=== PATIENT | female | born 1945 | race Caucasian/White ===

== ENCOUNTER 2017-05-04 07:41 | Day surgery (SDC) | payer OTHER, MEDICARE ==
[2017-04-22 14:06] VITALS: BMI 20.8
[2017-05-04] MEDS: CYCLOPENTOLATE 2% OPHTH SOLN 2 ML BOTTLE ONE ×3 (08:20→08:30)
[2017-05-04] MEDS: TROPICAMIDE 1% OPHTH SOLN 15 ML BOTTLE ONE ×3 (08:20→08:30)
[2017-05-04] MEDS: CIPROFLOXACIN 0.3% EYE DROPS 5 ML BOTTLE ONE ×3 (08:20→08:30)
[2017-05-04] MEDS: PHENYLEPHRINE 2.5% OPHTH SOLN 15 ML BOTTLE ONE ×3 (08:20→08:30)
[2017-05-04] MEDS ORDERED: MIDAZOLAM HCL 2 MG/2 ML SINGLE DOSE VIAL ONE (09:23)
[2017-05-04 10:32] VITALS: BP 131/78; PULSE 72; TEMP 98.1
--- NOTE | 2017-05-04 11:51 | OP ---
DATE OF OPERATION: 05/04/2017 OPERATIVE PROCEDURE: Lens Phacoemulsification with Posterior Chamber Intraocular Lens Placement Left Eye PREOPERATIVE DIAGNOSIS: Visually Significant Cataract of Left Eye POSTOPERATIVE DIAGNOSIS: Visually Significant Cataract of Left Eye SURGEON: Alex Haddad M.D. ANESTHESIA: MAC ANESTHESIOLOGIST: PROCEDURE: The patient was brought to the operating room and placed under monitored anesthesia care by Anesthesia. A drop of Tetracaine was then placed over the left eye. The patient was then prepped and draped in the usual sterile manner. A speculum was then placed over the left eye. The eye was then well irrigated with copious amounts of BSS (balanced salt solution). The operating microscope was then moved into position. A paracentesis was performed using a 15 degree blade. At this point 0.5 mL of 1% preservative-free lidocaine was injected into the anterior chamber. Amvisc plus was then injected into the anterior chamber. A clear corneal incision was then formed using a 2.2 mm keratome. A capsulorrhexis was then performed in a continuous circular fashion beginning with a cystotome, completed with an Utratas forceps. Hydrodissection was then performed using BSS on a cannula. The phaco probe was then introduced through the corneal wound and the cataract was removed using the phaco chop technique. Approximately 3 seconds of absolute phaco time was used. The remaining cortex was then removed using irrigation and aspiration with an I/A probe. The capsule was then filled with regular Amvisc and the capsule was noted to be intact. A previously selected foldable posterior chamber intraocular lens was then injected into the capsule through the corneal wound using a lens injector. It was then dialed into position using a Sinskey hook. The Amvisc was then removed using irrigation and aspiration. Miostat was then injected through the paracentesis to constrict the pupil. The paracentesis and corneal wound were then hydrated and noted to be water tight. A drop of Maxitrol was then placed over the eye. The speculum was removed and clear shield was taped over the eye. The patient tolerated the procedure well and there were no surgical complications. The patient was asked to follow up in my office the next day. ALEX HADDAD M.D. [id number]
== END 2017-05-04 10:37 | disposition home or self-care (01) ==
LOC: FASU 07:41
PROVIDERS: ATTEND Ophthalmology
PROC: 08RK3JZ Replacement of Left Lens with Synthetic Substitute, Percutaneous Approach (ICD-10-PCS; principal; 2017-05-04 09:28)
DX: H26.8 Other specified cataract (principal)

== ENCOUNTER 2017-06-20 07:40 | Day surgery (SDC) | payer OTHER, MEDICARE ==
[2017-06-06 13:43] VITALS: BMI 20.8
[2017-06-20] MEDS: PHENYLEPHRINE 2.5% OPHTH SOLN 15 ML BOTTLE ONE ×3 (08:20→08:30)
[2017-06-20] MEDS: CIPROFLOXACIN 0.3% EYE DROPS 5 ML BOTTLE ONE ×3 (08:20→08:30)
[2017-06-20] MEDS: TROPICAMIDE 1% OPHTH SOLN 15 ML BOTTLE ONE ×3 (08:20→08:30)
[2017-06-20] MEDS: CYCLOPENTOLATE 2% OPHTH SOLN 2 ML BOTTLE ONE ×3 (08:20→08:30)
[2017-06-20] MEDS ORDERED: MIDAZOLAM HCL 2 MG/2 ML SINGLE DOSE VIAL ONE (09:42)
[2017-06-20 10:57] VITALS: TEMP 98
[2017-06-20 11:04] VITALS: BP 151/72; PULSE 70
--- NOTE | 2017-06-20 18:55 | OP ---
DATE OF OPERATION: 06/20/2017 OPERATIVE PROCEDURE: Lens Phacoemulsification with Posterior Chamber Intraocular Lens Placement, Right Eye PREOPERATIVE DIAGNOSIS: Visually Significant Cataract of Right Eye POSTOPERATIVE DIAGNOSIS: Visually Significant Cataract of Right Eye SURGEON: Alex Haddad M.D. ANESTHESIA: MAC PROCEDURE: The patient was brought to the operating room and placed under monitored anesthesia care by Anesthesia. A drop of Tetracaine was then placed over the right eye. The patient was then prepped and draped in the usual sterile manner. A speculum was then placed over the right eye. The eye was then well irrigated with copious amounts of BSS (balanced salt solution). The operating microscope was then moved into position. A paracentesis was performed using a 15 degree blade. At this point 0.5 mL of 1% preservative free-lidocaine was injected into the anterior chamber. Amvisc plus was then injected into the anterior chamber. A clear corneal incision was then formed using a 2.2 mm keratome. A capsulorrhexis was then performed in a continuous circular fashion beginning with a cystotome completed with an Utratas forceps. Hydrodissection was then performed using BSS on a cannula. The phaco probe was then introduced through the corneal wound and the cataract was removed using the phaco chop technique. Approximately 3 seconds of absolute phaco time was used. The remaining cortex was then removed using irrigation and aspiration with an I/A probe. The capsule was then filled with regular Amvisc and the capsule was noted to be intact. A previously selected foldable posterior chamber intraocular lens was then injected into the capsule through the corneal wound using a lens injector. It was then dialed into position using a Sinskey hook. The Amvisc was then removed using irrigation and aspiration. Miostat was then injected through the paracentesis to constrict the pupil. The paracentesis and corneal wound were then hydrated and noted to be water tight. A drop of Maxitrol was then placed over the eye. The speculum was removed and clear shield was taped over the eye. The patient tolerated the procedure well and there were no surgical complications. The patient was asked to follow up in my office the next day. ALEX HADDAD M.D. [id number]
== END 2017-06-20 10:30 | disposition home or self-care (01) ==
LOC: FASU 07:40
PROVIDERS: ATTEND Ophthalmology
PROC: 08RJ3JZ Replacement of Right Lens with Synthetic Substitute, Percutaneous Approach (ICD-10-PCS; principal; 2017-06-20 09:48)
DX: H26.8 Other specified cataract (principal)

== ENCOUNTER 2018-03-06 13:46 | Emergency (ER) | payer OTHER, MEDICARE ==
[2018-03-06 14:11] VITALS: TEMP 99; BMI 20.8
--- NOTE | 2018-03-06 15:17 | PDOC ---
History of Present Illness - General Chief Complaint: Chest Pain Stated Complaint: CHEST PAIN History Source: Patient Exam Limitations: No Limitations - History of Present Illness Initial Comments: 03/06/18 16:00 73 yo F with a hx of HTN and HLD presents to the emergency department with chest pain with concurrent headache. Per the patient, the event occurred at 12: 30 pm while sitting in the car. She states it was across her chest, felt sharp, lasted 1 minute, did not radiate, and terminated on its own. She had a similar episode yesterday in the late afternoon that lasted 30 seconds while sitting. During todays episode, she endorses the following symptoms: lightheadedness, headaches, palpitations, SOB, and weakness. Currently, she denies chest pain and only has a residual headache on the right side. She was able to exercise at the gym without difficulties earlier this morning. Incidentally, they found her SBP to be in 190s at the office (normal is in the 160s). She recently had a resection of melanoma 3.5 months ago with no chemo needed. Denies the following : FND, visual changes, nausea, vomiting, abdominal pain, dysuria, hematuria, melena, hematochezia, diarrhea, and leg pain/swelling. Denies recent plane travels, immobilization, surgeries, hx of PE/DVT, and use of hormones. Pmhx: Refer to above Shx: None Meds: None Allergies: IV Contrast Social: Denies tobacco, alcohol, and substance abuse. 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, 3) Cardiac Disorders: No CVA: No COPD: No CHF: No Dementia: No Diabetes: No GI Disorders: No Disorders: No HTN: No Hypercholesterolemia: No Liver Disease: No Seizures: No Thyroid Disease: No - Surgical History Abdominal Surgery: No Appendectomy: Yes Cardiac Surgery: No Cholecystectomy: No Lung Surgery: No Neurologic Surgery: No Orthopedic Surgery: Yes (ROTATOR CUFF RIGHT SHOULDER DEC 2015) - Immunization History Immunization Up to Date: No - Suicide/Smoking/Psychosocial Hx Smoking Status: No Smoking History: Never smoked Have you smoked in the past 12 months: No Number of Cigarettes Smoked Daily: 20 If you are a former smoker, when did you quit?: 1973 Cigars Per Day: 20 Information on smoking cessation initiated: No 'Breaking Loose' booklet given: 10/02/11 Hx Alcohol Use: No Drug/Substance Use Hx: No Substance Use Type: None Hx Substance Use Treatment: No Review of Systems - Review of Systems Able to Perform ROS?: Yes Comments:: Refer to HPI Is the patient limited Romansh proficient: No *Physical Exam - Vital Signs Last Vital Signs Temp Pulse Resp BP Pulse Ox 99.0 F 74 18 166/78 100 03/06/18 14:03 03/06/18 14:03 03/06/18 14:03 03/06/18 14:03 03/06/18 14:12 - Physical Exam General Appearance: Yes: Nourished, Appropriately Dressed. No: Apparent Distress, Disheveled, Alcohol on Breath, Intoxicated HEENT: positive: EOMI, SOLE, Normal Voice, Symmetrical, Hearing Grossly Normal. negative: Pale Conjunctivae, Scleral Icterus (R), Scleral Icterus (L), Muffled /Hoarse voice, Pharyngeal Erythema, Tonsillar Exudate, Tonsillar Erythema, Sinus Tenderness, Excessive drooling Neck: positive: Trachea midline. negative: Tender, Lymphadenopathy (R), Lymphadenopathy (L), Tender lateral, Tender midline Respiratory/Chest: positive: Lungs Clear, Normal Breath Sounds. negative: Chest Tender, Respiratory Distress, Accessory Muscle Use, Crackles, Rales, Rhonchi, Stridor, Wheezing Cardiovascular: positive: Regular Rhythm, Regular Rate, S1, S2. negative: Systolic Murmur Gastrointestinal/Abdominal: positive: Normal Bowel Sounds, Flat, Soft. negative : Tender, Organomegaly, Pulsatile Mass, Protuberent, Distended Lymphatic: negative: Adenopathy Musculoskeletal: positive: Normal Inspection. negative: CVA Tenderness, Decreased Range of Motion, Vertebral Tenderness Extremity: positive: Normal Capillary Refill, Normal Inspection, Normal Range of Motion. negative: Tender, Swelling, Calf Tenderness, Erythema Integumentary: positive: Normal Color, Dry, Warm. negative: Diaphoresis, Petechiae, Rash, Ecchymosis, Bruising Neurologic: positive: hackler doll wigs II-XII NML intact, Fully Oriented, Alert, Normal Mood/ Affect, Normal Response, Motor Strength 5/5, Facial Droop. negative: EOM Palsy , Sensory Deficit Heart Score/ECG Review - History History: Slightly suspicious - Electrocardiogram EKG: Normal - Age Age: >/= 65 - Risk Factors Risk Factors Heart Score: Yes Hx Hypercholesterolemia, Yes Hx Hypertension Based on the list above the patient has:: 1-2 risk factors - Troponin Troponin: </= normal limit - Score Heart Score - Total: 3 - ECG Intrepretation Comment:: ventricular rate is 73 bpm, [place] is 166 ms, QRS duration is 84 ms, QTc is 449 ms. Inversion t wave in III. no st elevations or depressions noted. ED Treatment Course - LABORATORY CBC & Chemistry Diagram: 03/06/18 16:02 03/06/18 16:02 Medical Decision Making - Medical Decision Making 73 yo F with a hx of HTN and HLD presents to the emergency department with chest pain with concurrent headache Initial vitals: Initial Vital Signs Temp Pulse Resp BP Pulse Ox 99.0 F 74 18 166/78 99 03/06/18 14:03 03/06/18 14:03 03/06/18 14:03 03/06/18 14:03 03/06/18 14:03 Presents with chest pain that is aytpical in nature with an associative headache. the following will be ordered to rule out acs (Cardiac work up), PNA, intracranial pathologies (ICH, SAH): cbc, cmp, trops, ua, head ct, cxr. patient is at a HEART score of 3 prior to troponin read. Laboratory Tests 03/06/18 03/06/18 03/06/18 16:02 16:02 16:02 WBC 10.1 H RBC 4.01 Hgb 12.6 Hct 36.5 MCV 91.1 MCH 31.5 D MCHC 34.6 RDW 13.2 Plt Count 280 MPV 8.0 Absolute Neuts (auto) 6.3 Neutrophils % 62.5 Lymphocytes % 27.3 D Monocytes % 7.1 Eosinophils % 1.7 Basophils % 1.4 Nucleated RBC % 0 Sodium 142 Potassium 3.6 Chloride 108 H Carbon Dioxide 26 Anion Gap 8 BUN 15 Creatinine 0.6 Creat Clearance w eGFR > 60 Random Glucose 76 Calcium 8.5 Total Bilirubin 0.2 AST 18 ALT 19 Alkaline Phosphatase 74 Creatine Kinase 62 Troponin I < 0.02 Total Protein 6.2 L Albumin 3.5 Urine Color Ltyellow Urine Appearance Clear Urine pH 6.0 Ur Specific [place] 1.014 Urine Protein Negative Urine Glucose (UA) Negative Urine Ketones Negative Urine Blood Negative Urine Nitrite Negative Urine Bilirubin Negative Urine Urobilinogen Negative Ur Leukocyte Esterase Trace Urine WBC (Auto) 1 Urine RBC (Auto) 1 Ur Epithelial Cells Rare Urine Mucus Rare Troponins were negative. she states she has remained asymptomatic in the department chest pain wade. initially 1 gram of tylenol IV was given for headache pain. this was ineffective per the patient. reglan and toradol were ordered and the patient had remarkable improvement. CT head was negative for acute pathologies but noted a chronic right punctate basal ganglia infarct that was seen on a previous exam in 2015. cxr did not show acute pathologies (no pna , widening mediastinum, enlarged heart). During her stay, her BP improved (SBP was in the low 160s during time of initial assessment). The results were discussed with the patient and all questions were answered to her satisfaction. She states that she will follow up with cardiology within 48 hours for repeat BP check and further cardiac work up. Vitals were stable at discharge and the patient was asymptomatic. bp was 128/61 Dispo: Discharge *DC/Admit/Observation/Transfer Diagnosis at time of Disposition: Chest pain Qualifiers: Chest pain type: unspecified Qualified Code(s): R07.9 - Chest pain, unspecified - Discharge Dispostion Disposition: HOME Decision to Admit order: No - Referrals Referrals: Issa Jara MD [Primary Care Provider] - Joaquim Cline MD [Staff Physician] - Sumit Mohr MD [Staff Physician] - - Patient Instructions Printed Discharge Instructions: DI for Atypical Chest Pain Additional Instructions: You were seen in the emergency department for your chest pain. Your labs indicate that you did not have a myocardial infarction (heart attack). You did present to the emergency department with elevated blood pressure and we advise you have this rechecked with your PMD within 48 hours. Please follow up with Dr. Jara or Dr. Cline within 48 hours for follow up care and management. Please return to the emergency department if you have worsening chest pain or new concerning symptoms such as fevers, chills, sweating with chest pain, and shortness of breath or chest pain with exertion. We also referred you to a neurologist that can be followed up with within 3 days. Thank you. - Post Discharge Activity
[2018-03-06] MEDS ORDERED: ACETAMINOPHEN 1000 MG/100 ML VIAL (NON FORMULARY) IVPB ONE (15:59)
[2018-03-06] MEDS ORDERED: ACETAMINOPHEN INJECTION 100 ML IVPB ONE (16:12)
[2018-03-06 16:20] LABS: BASO % 1.4 % (0-2.0); EOS % 1.7 % (0-4.5); HEMATOCRIT 36.5 % (32.4-45.2); HEMOGLOBIN 12.6 GM/dL (10.7-15.3); LYMPH % 27.3 % (8-40); MCH 31.5 pg (25.7-33.7); MCHC 34.6 g/dl (32.0-36.0); MEAN CELL VOLUME 91.1 fl (80-96); MONO % 7.1 % (3.8-10.2); NEUT % 62.5 % (42.8-82.8); PLATELET COUNT 280 K/MM3 (134-434); RBC 4.01 M/mm3 (3.60-5.2); RDW 13.2 % (11.6-15.6); WHITE BLOOD COUNT 10.1 K/mm3 (4.0-10.0)
[2018-03-06 16:26] LABS: URINE APPEARANCE CLEAR; URINE BILIRUBIN NEGATIVE (<2.0 mg/dL); URINE COLOR LTYELLOW; URINE GLUCOSE (UA) NEGATIVE (NEGATIVE); URINE KETONE NEGATIVE (NEGATIVE); URINE LEUK ESTERASE TRACE (NEGATIVE); URINE NITRITE NEGATIVE (NEGATIVE); URINE PROTEIN NEGATIVE (NEGATIVE); URINE UROBILINOGEN NEGATIVE mg/dL (0.2-1.0)
[2018-03-06 16:38] VITALS: BP 174/87; PULSE 70
[2018-03-06 16:54] LABS: ALBUMIN 3.5 g/dl (3.4-5.0); ALK PHOS 74 U/L (45-117); ANION GAP 8 MMOL/L (8-16); BILIRUBIN,TOTAL 0.2 mg/dL (0.2-1); BLOOD UREA NITROGEN 15 mg/dL (7-18); CALCIUM 8.5 mg/dL (8.5-10.1); CHLORIDE 108 mmol/L (98-107); CO2 26 mmol/L (21-32); CREATININE 0.6 mg/dL (0.55-1.3); GLUCOSE,RANDOM 76 mg/dL (74-106); POTASSIUM 3.6 mmol/L (3.5-5.1); SGOT/AST 18 U/L (15-37); SGPT/ALT 19 U/L (13-61); SODIUM 142 mmol/L (136-145); TOT PROT 6.2 g/dl (6.4-8.2)
[2018-03-06 16:57] LABS: EPI CELLS RARE /HPF (FEW); URINE MUCUS RARE
[2018-03-06] MEDS ORDERED: METOCLOPRAMIDE HCL INJECTION 10 MG/2 ML VIAL IVPUSH ONE (17:06)
[2018-03-06] MEDS ORDERED: KETOROLAC TROMETHAMINE 15 MG/ML VIAL IVPUSH ONE (17:06)
[2018-03-06] MEDS ORDERED: METOCLOPRAMIDE HCL INJECTION 10 MG/2 ML VIAL ONE (17:10)
[2018-03-06] MEDS ORDERED: KETOROLAC TROMETHAMINE 15 MG/ML VIAL ONE (17:10)
--- NOTE | 2018-03-06 17:14 | PDOC ---
Attending Attestation - Resident Resident Name: Juan J Guzman - ED Attending Attestation I have performed the following: I have examined & evaluated the patient, The case was reviewed & discussed with the resident, I agree w/resident's findings & plan, Exceptions are as noted - HPI HPI: 03/06/18 17:09 The patient is a 73 year old female, with a past medical history of HTN and HLD , who presents to the emergency department with chest pain and headache. Pt reports intermittent sharp midsternal chest pain since yesterday. She describes the chest pain as lasting 1 minute, sharp, and resolving spontaneously. Pt also endorses mild intermittent headaches x 6 days. Denies N/V. Denies neck pain. Denies F/C. Pt was seen at [facility] prior to coming to ED, where she was found to have BP 190/100. Pt does not currently take any BP meds. She denies recent fevers, chills, headache or dizziness. She denies recent nausea, vomit, diarrhea or constipation. She denies recent dysuria, frequency, urgency or hematuria. She denies recent shortness of breath. Allergies: Oral and IV contrast. Primary Care Physician: Dr. Jara - Physicial Exam PE: 03/06/18 17:13 GENERAL: Awake, alert, and fully oriented, in no acute distress. HEAD: No signs of trauma EYES: PERRLA, EOMI, sclera anicteric, conjunctiva clear ENT: Auricles normal inspection, hearing grossly normal, nares patent, oropharynx clear without exudates. Moist mucosa NECK: Nontender, no stepoffs, Normal ROM, supple, no lymphadenopathy, JVD, or masses LUNGS: Breath sounds equal, clear to auscultation bilaterally. No wheezes, and no crackles HEART: Regular rate and rhythm, normal S1 and S2, no murmurs, rubs or gallops ABDOMEN: Soft, nontender, normoactive bowel sounds. No guarding, no rebound. No masses EXTREMITIES: Normal range of motion, no edema. No clubbing or cyanosis. No cords, erythema, or tenderness NEUROLOGICAL: Cranial nerves II through XII intact. 5/5 strength and sensation in all extremities, Normal speech, normal gait, normal cerebellar function SKIN: Warm, Dry, normal turgor, no rashes or lesions noted. - Medical Decision Making 03/06/18 17:13 73 F with intermittent chest pain and headaches. Pt with normal EKG. Chest pain is very atypical in nature. HEART score is 3 with negative troponin. Will r/o ICH given elevated BP and [place] today. However, pt is well appearing with no neuro deficits. - Labs, trop - CT head 03/06/18 18:00 Labs wnl, trop negative Pt has had symptoms >4 hours, so single trop sufficient for ACS rule out. CT head negative Pt reassessed - now feels well, denies any pain. BP is improving without intervention. Pt instructed to f/u with cardiology within 48 hours for further evaluation of her chest pain and management of her BP. Pt is well appearing, with normal vitals. Clinically stable for DC at this time. I discussed the physical exam findings, ancillary test results and final diagnoses with the patient. I answered all of the patient's questions. The patient was satisfied with the care received and felt comfortable with the discharge plan and treatment plan. The patient agrees to follow up with the primary care physician within 24-72 hours.
--- NOTE | 2018-03-07 12:36 | EKG ---
Test Reason : Blood Pressure : / mmHG Vent. Rate : 073 BPM Atrial Rate : 073 BPM P-R Int : 166 ms QRS Dur : 084 ms QT Int : 408 ms P-R-T Axes : 056 017 019 degrees QTc Int : 449 ms NORMAL SINUS RHYTHM WITH SINUS ARRHYTHMIA LOW VOLTAGE QRS SEPTAL INFARCT , AGE UNDETERMINED ABNORMAL ECG Confirmed by MD SELIN, LINDSAY ([id number]) on 03/07/2018 12:35:40 PM Referred By: Confirmed By:LINDSAY SMALLWOOD MD
== END 2018-03-06 18:22 | disposition home or self-care (01) ==
LOC: JER 13:46
PROC: 3E033GC Introduction of Other Therapeutic Substance into Peripheral Vein, Percutaneous Approach (ICD-10-PCS; principal; 2018-03-06)
PROC: 3E033NZ Introduction of Analgesics, Hypnotics, Sedatives into Peripheral Vein, Percutaneous Approach (ICD-10-PCS; 2018-03-06)
PROC: 3E0333Z Introduction of Anti-inflammatory into Peripheral Vein, Percutaneous Approach (ICD-10-PCS; 2018-03-06)
DX: R07.9 Chest pain, unspecified (principal); I10 Essential (primary) hypertension; E78.5 Hyperlipidemia, unspecified
CPT/HCPCS: 36415; 70450-TC; 71045-TC-FY; 80053; 81003; 81015; 82550; 84484; 85025; 87086; 93005; 93010; 96374; 96375; 99285-25; J0131

== ENCOUNTER 2018-12-26 23:50 | Emergency (ER) | payer OTHER, MEDICARE ==
[2018-12-27] VITALS: BP 153/84; PULSE 85; TEMP 99.3; BMI 20.9
[2018-12-27] MEDS ORDERED: METOCLOPRAMIDE HCL INJECTION 10 MG/2 ML VIAL IVPUSH ONE (00:11)
[2018-12-27] MEDS ORDERED: ACETAMINOPHEN 1000 MG/100 ML VIAL (NON FORMULARY) IVPB ONE (00:11)
[2018-12-27] MEDS ORDERED: SODIUM CHLORIDE 0.9% 1000 ML INFUS.BAG IV ONE (00:11)
[2018-12-27] MEDS ORDERED: ALBUTEROL SO4 2.5/IPRATROPIUM 0.5 INH SOL 3 ML VIAL.NEB. NEB ONE ×2 (00:12→00:23)
[2018-12-27] MEDS ORDERED: METOCLOPRAMIDE HCL INJECTION 10 MG/2 ML VIAL ONE ×2 (00:23→00:42)
[2018-12-27] MEDS ORDERED: ACETAMINOPHEN INJECTION 100 ML IVPB ONE (00:23)
[2018-12-27 01:18] LABS: BASO % 0.7 % (0-2.0); EOS % 0.9 % (0-4.5); HEMOGLOBIN 12.3 GM/dL (10.7-15.3); LYMPH % 11.8 % (8-40); MCH 30.8 pg (25.7-33.7); MCHC 32.3 g/dl (32.0-36.0); MEAN CELL VOLUME 95.3 fl (80-96); MEAN PLT VOLUME 10.6 fl (7.5-11.1); MONO % 7.7 % (3.8-10.2); NEUT % 78.9 % (42.8-82.8); PLATELET COUNT 148 K/MM3 (134-434); RBC 3.99 M/mm3 (3.60-5.2); WHITE BLOOD COUNT 11.6 K/mm3 (4.0-10.0)
[2018-12-27 01:26] LABS: URINE APPEARANCE CLEAR; URINE BILIRUBIN NEGATIVE (NEGATIVE); URINE COLOR YELLOW; URINE GLUCOSE (UA) NEGATIVE (NEGATIVE); URINE KETONE NEGATIVE (NEGATIVE); URINE LEUK ESTERASE NEGATIVE (NEGATIVE); URINE NITRITE NEGATIVE (NEGATIVE); URINE PROTEIN NEGATIVE (NEGATIVE); URINE UROBILINOGEN 0.2 mg/dL (0.2-1.0)
[2018-12-27 01:37] LABS: BILIRUBIN,TOTAL 0.2 mg/dL (0.2-1); CALCIUM 9.2 mg/dL (8.5-10.1); CREATININE 0.8 mg/dL (0.55-1.3); POTASSIUM 3.6 mmol/L (3.5-5.1); TOT PROT 6.8 g/dl (6.4-8.2)
[2018-12-27] MEDS ORDERED: KETOROLAC TROMETHAMINE 15 MG/ML VIAL IVPUSH ONE (01:38)
[2018-12-27] MEDS ORDERED: KETOROLAC TROMETHAMINE 30 MG/1 ML VIAL ONE (01:44)
--- NOTE | 2018-12-27 01:45 | PDOC ---
History of Present Illness - General Chief Complaint: Pain, Acute Stated Complaint: FEVER, HEADACHE History Source: Patient Exam Limitations: No Limitations - History of Present Illness Initial Comments: 12/27/18 01:40 73 yo F with h/o htn, chronic cystitis, here with c/o fever, headache. cough sore throat nasal congestion and generalized body aches. did have 2 episodes of vomiting today . no abd pain. no mod factors. no /co abd pain. no diarrhea. no urinary sxs. does follow with dr Sukumar SOSA, who is currently waiting on a urine cultures to see if she requires treatment. 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, 3) Cardiac Disorders: No CVA: No COPD: No CHF: No Dementia: No Diabetes: No GI Disorders: No Disorders: Yes (PRESENTLY HAS UTI,PENDING CULTURE) HTN: Yes Hypercholesterolemia: Yes Kidney Stones: Yes Liver Disease: No Seizures: No Thyroid Disease: No - Surgical History Abdominal Surgery: No Appendectomy: Yes Cardiac Surgery: No Cholecystectomy: No Lung Surgery: No Neurologic Surgery: No Orthopedic Surgery: Yes (ROTATOR CUFF RIGHT SHOULDER DEC 2015) - Immunization History Immunization Up to Date: No - Suicide/Smoking/Psychosocial Hx Smoking Status: No Smoking History: Never smoked Have you smoked in the past 12 months: No Number of Cigarettes Smoked Daily: 20 If you are a former smoker, when did you quit?: 1973 Cigars Per Day: 20 Information on smoking cessation initiated: No 'Breaking Loose' booklet given: 10/02/11 Hx Alcohol Use: No Drug/Substance Use Hx: No Substance Use Type: None Hx Substance Use Treatment: No Review of Systems - Review of Systems Constitutional: Yes: Chills, Fever HEENTM: Yes: Nose Congestion, Throat Pain. No: Eye Pain Respiratory: Yes: Cough Cardiac (ROS): No: Chest Pain, Edema ABD/GI: Yes: Nausea, Vomiting : No: Burning, Dysuria, Discharge Musculoskeletal: No: Back Pain Integumentary: No: Bruising, Change in Color Neurological: No: Headache, Numbness All Other Systems: Reviewed and Negative *Physical Exam - Vital Signs Last Vital Signs Temp Pulse Resp BP Pulse Ox 99.3 F 85 16 153/84 100 12/26/18 23:56 12/26/18 23:56 12/26/18 23:56 12/26/18 23:56 12/26/18 23:56 - Physical Exam Comments: 12/27/18 01:46 awake alert nasal congestion / rhinorrhea clear. post pharynx red, post cobblestoning. heart rrr no mrg abd soft mild suprapubic ttp. no cva tenderness. ext wwp. no edema. no rash. ED Treatment Course - LABORATORY CBC & Chemistry Diagram: 12/27/18 00:20 12/27/18 00:20 - ADDITIONAL ORDERS Additional order review: Laboratory Results 12/27/18 12/27/18 12/27/18 00:25 00:25 00:20 Sodium 140 Potassium 3.6 Chloride 105 Carbon Dioxide 28 Anion Gap 7 L BUN 18.0 Creatinine 0.8 Est GFR (CKD-EPI)AfAm 84.18 Est GFR (CKD-EPI)NonAf 72.63 Random Glucose 100 Calcium 9.2 Total Bilirubin 0.2 AST 18 ALT 20 Alkaline Phosphatase 79 Total Protein 6.8 Albumin 4.0 Urine Color Yellow Cancelled Urine Appearance Clear Cancelled Urine pH 5.0 Cancelled Ur Specific [place] 1.022 Urine Protein Negative Cancelled Urine Glucose (UA) Negative Cancelled Urine Ketones Negative Cancelled Urine Blood Negative Cancelled Urine Nitrite Negative Cancelled Urine Bilirubin Negative Cancelled Urine Urobilinogen 0.2 Cancelled Ur Leukocyte Esterase Negative Cancelled 12/27/18 00:20 RBC 3.99 MCV 95.3 MCHC 32.3 RDW 13.0 MPV 10.6 D Neutrophils % 78.9 D Lymphocytes % 11.8 D Monocytes % 7.7 Eosinophils % 0.9 Basophils % 0.7 - RADIOLOGY Radiology Studies Ordered: Category Date Time Status CHEST PA & LAT [RAD] Stat Radiology 12/27/18 00:12 Ordered - Medications Given in the ED: ED Medications Discontinued Medications Generic Name Dose Route Start Last Admin Trade Name Freq PRN Reason Stop Dose Admin Acetaminophen 1,000 mg 12/27/18 00:11 12/27/18 00:29 Ofirmev Injection - IVPB 12/27/18 00:12 1,000 mg ONCE ONE Administration Albuterol/Ipratropium 1 amp 12/27/18 00:12 12/27/18 00:29 Duoneb - NEB 12/27/18 00:13 1 amp ONCE ONE Administration Metoclopramide HCl 10 mg 12/27/18 00:11 12/27/18 00:46 Reglan Injection - IVPUSH 12/27/18 00:12 10 mg ONCE ONE Administration Sodium Chloride 1,000 ml 12/27/18 00:11 12/27/18 00:20 Normal Saline - IV 12/27/18 00:12 1,000 ml ONCE ONE Administration Medical Decision Making - Medical Decision Making 12/27/18 01:46 73 yo F with h/o frequent uti, cystitis, htn here with c/o viral like illness cough congestion sore throat fevers and headache. plan labs ua, r/o uti, cxr r/o pna, treat with symptomatic treatment. given neb for bronchospastic cough. pt cough improved slightly with neb. frequent coughing in ed . nonproductive. cxr is negative for pna. labs noted for mild wbc elevation 11, electrolytes normal. ua negative. pt told to use flonase for nasal congestion, inhaler as needed for the cough, tylenol, and fu pcp. *DC/Admit/Observation/Transfer Diagnosis at time of Disposition: Viral URI with cough - Discharge Dispostion Disposition: HOME Condition at time of disposition: Improved Decision to Admit order: No - Prescriptions Prescriptions: Albuterol Sulfate Inhaler - [Ventolin HFA Inhaler -] 2 inh PO Q4H PRN #1 inh PRN Reason: Cough Fluticasone Prop 0.05% Nasal [Flonase -] 1 - 2 spray NS DAILY #1 spray.pump - Referrals Referrals: Issa Jara MD [Primary Care Provider] - - Patient Instructions Printed Discharge Instructions: Common Cold Additional Instructions: you can use albuterol inhaler 2 puffs every 4 hrs as needed for cough, wheezing. follow up [facility] dr Garcia. use flonase inhaled each nostril one spray each nostril daily. take tylenol 500 mg every 6 hrs as needed for fever. returnf for persistant vomiting, worsening symptoms or any concerns. - Post Discharge Activity
[2018-12-27] MEDS ORDERED: KETOROLAC TROMETHAMINE 30 MG/1 ML VIAL IVPUSH ONE (01:49)
== END 2018-12-27 01:57 | disposition home or self-care (01) ==
LOC: FER 23:50
PROC: 3E0333Z Introduction of Anti-inflammatory into Peripheral Vein, Percutaneous Approach (ICD-10-PCS; principal; 2018-12-26)
PROC: 3E033NZ Introduction of Analgesics, Hypnotics, Sedatives into Peripheral Vein, Percutaneous Approach (ICD-10-PCS; 2018-12-26)
PROC: 3E0337Z Introduction of Electrolytic and Water Balance Substance into Peripheral Vein, Percutaneous Approach (ICD-10-PCS; 2018-12-26)
PROC: 3E033GC Introduction of Other Therapeutic Substance into Peripheral Vein, Percutaneous Approach (ICD-10-PCS; 2018-12-26)
PROC: 3E0F7GC Introduction of Other Therapeutic Substance into Respiratory Tract, Via Natural or Artificial Opening (ICD-10-PCS; 2018-12-26)
DX: J06.9 Acute upper respiratory infection, unspecified (principal); B34.9 Viral infection, unspecified; R05 Cough; I10 Essential (primary) hypertension; E78.00 Pure hypercholesterolemia, unspecified; Z85.828 Personal history of other malignant neoplasm of skin
CPT/HCPCS: 36415; 71046-TC-FY; 80053; 81003; 85025; 87086; 94640; 96374; 96375; 99282-25; J0131; J7030

== ENCOUNTER 2019-01-15 06:10 | Day surgery (SDC) | payer OTHER, MEDICARE ==
[2018-12-29 12:01] VITALS: BMI 20.9
[~2019-01-15 06:10] MED LIST: ACETAMINOPHEN 325 MG TABLET (FP) PO PRN; ONDANSETRON 4 MG/2 ML VIAL IVPUSH PRN; oxyCODONE HCL 5 MG TABLET PO PRN
[2019-01-15] MEDS ORDERED: PROPOFOL 20 ML ONE ×2 (07:40)
[2019-01-15] MEDS ORDERED: MIDAZOLAM HCL 2 MG/2 ML SINGLE DOSE VIAL ONE (07:40)
[2019-01-15] MEDS ORDERED: DEXAMETHASONE SOD PHOSPHATE 4 MG/1 ML VIAL ONE (08:41)
[2019-01-15] MEDS ORDERED: KETOROLAC TROMETHAMINE 30 MG/1 ML VIAL ONE (08:41)
--- NOTE | 2019-01-15 09:57 | OP ---
Operative Note - Note: Operative Date: 01/15/19 Pre-Operative Diagnosis: Left Renal stone Operation: Left ESWL Findings: 4 mm mid pole left renal stone Post-Operative Diagnosis: Same as Pre-op Surgeon: Se Pearson Anesthesia: Fractional Estimated Blood Loss (mls): 0 Operative Report Dictated: Yes
[2019-01-15 10:19] VITALS: BP 128/60; PULSE 64; TEMP 98.4
--- NOTE | 2019-01-16 10:14 | OP ---
DATE OF OPERATION: 01/15/2019 PREOPERATIVE DIAGNOSIS: Left renal stone. POSTOPERATIVE DIAGNOSIS: Left renal stone. PROCEDURE: Left extracorporeal shock wave lithotripsy. ATTENDING: Rolly Weiss MD ANESTHESIA: Fractional. OPERATION: Patient was brought in the operating room and placed in the supine position on the operating room table. A 4 mm left mid pole stone was identified. At this point, anesthesia was administered. This was fractional anesthesia. Shock wave lithotripsy was then performed, 2500 impulses at 1700 joules of power were administered to the stone with excellent fragmentation noted under real-time ultrasonography and fluoroscopy. There were no complications noted. The patient tolerated the procedure very well. ROLLY WEISS M.D. [id number]
== END 2019-01-15 10:15 | disposition home or self-care (01) ==
LOC: JASU-SURG 06:10
PROVIDERS: ATTEND Urology
PROC: 0TF4XZZ Fragmentation in Left Kidney Pelvis, External Approach (ICD-10-PCS; principal; 2019-01-15 08:00)
DX: N20.0 Calculus of kidney (principal)

== ENCOUNTER 2021-08-27 18:25 | Emergency (ER) | payer OTHER, MEDICARE ==
[2021-08-27 18:35] VITALS: BP 146/78; PULSE 74; TEMP 97.8; BMI 25.8
[2021-08-27 20:15] LABS: BASO % 1.2 % (0-2.0); EOS % 3.7 % (0-4.5); HEMATOCRIT 36.9 % (32.4-45.2); HEMOGLOBIN 12.3 GM/dL (10.7-15.3); LYMPH % 28.9 % (8-40); MCH 30.5 pg (25.7-33.7); MCHC 33.3 g/dl (32.0-36.0); MEAN CELL VOLUME 91.8 fl (80-96); MEAN PLT VOLUME 7.9 fl (7.5-11.1); MONO % 18.7 % (3.8-10.2); NEUT % 47.5 % (42.8-82.8); PLATELET COUNT 257 10^3/uL (134-434); RBC 4.02 M/mm3 (3.60-5.2); RDW 13.2 % (11.6-15.6); WHITE BLOOD COUNT 5.4 K/mm3 (4.0-10.0)
[2021-08-27 20:46] LABS: CALCIUM 8.6 mg/dL (8.5-10.1)
[2021-08-27 20:47] LABS: ALBUMIN 3.4 g/dl (3.4-5.0); BLOOD UREA NITROGEN 13.6 mg/dL (7-18)
[2021-08-27 20:50] LABS: CREATININE 0.6 mg/dL (0.55-1.3)
[2021-08-27 20:51] LABS: BILIRUBIN,TOTAL 0.2 mg/dL (0.2-1); TOT PROT 5.8 g/dl (6.4-8.2)
== END 2021-08-27 23:19 | disposition home or self-care (01) ==
LOC: JER 18:25
DX: R06.02 Shortness of breath (principal)
CPT/HCPCS: 0241U-QW; 36415; 71046-TC-FY; 80053; 84484; 85025; 85379; 93005; 93010; 99285-25

== ENCOUNTER 2021-08-30 08:52 | Emergency (ER) | payer OTHER, MEDICARE ==
[2021-08-30 08:58] VITALS: TEMP 97.7; BMI 20.1
[2021-08-30] MEDS ORDERED: METOCLOPRAMIDE HCL 10 MG TABLET (FP) PO ONE (09:28)
[2021-08-30] MEDS ORDERED: ACETAMINOPHEN 325 MG TABLET (FP) PO ONE (09:28)
[2021-08-30] MEDS ORDERED: METOCLOPRAMIDE HCL INJECTION 10 MG/2 ML VIAL IVPUSH ONE (09:33)
[2021-08-30] MEDS ORDERED: ACETAMINOPHEN 1000 MG/100 ML BAG IVPB ONE (09:34)
[2021-08-30] MEDS ORDERED: METOCLOPRAMIDE HCL INJECTION 10 MG/2 ML VIAL ONE (09:42)
[2021-08-30] MEDS ORDERED: ACETAMINOPHEN INJECTION 100 ML IVPB ONE (09:42)
[2021-08-30] MEDS ORDERED: CODEINE SO4 30 MG TABLET PO ONE ×2 (09:53→10:03)
[2021-08-30] MEDS ORDERED: PIPERACILLIN/TAZOB 4.5 GM 4.5 GM/100 ML BAG IVPB ONE (10:08)
[2021-08-30] MEDS ORDERED: VANCOMYCIN 1 GRAM (PRE-DOCKED) 1,000 MG/250 ML BAG IVPB ONE (10:09)
[2021-08-30 10:43] LABS: CALCIUM 8.8 mg/dL (8.5-10.1)
[2021-08-30 10:44] LABS: ALBUMIN 3.5 g/dl (3.4-5.0); BLOOD UREA NITROGEN 9.8 mg/dL (7-18)
[2021-08-30 10:46] LABS: BASO % 1.1 % (0-2.0); EOS % 3.6 % (0-4.5); HEMATOCRIT 37.5 % (32.4-45.2); HEMOGLOBIN 12.5 GM/dL (10.7-15.3); LYMPH % 19.7 % (8-40); MCH 30.6 pg (25.7-33.7); MCHC 33.4 g/dl (32.0-36.0); MEAN CELL VOLUME 91.6 fl (80-96); MEAN PLT VOLUME 8.1 fl (7.5-11.1); MONO % 17.3 % (3.8-10.2); NEUT % 58.3 % (42.8-82.8); PLATELET COUNT 220 10^3/uL (134-434); RBC 4.09 M/mm3 (3.60-5.2); RDW 13.3 % (11.6-15.6)
[2021-08-30 10:47] LABS: CREATININE 0.7 mg/dL (0.55-1.3)
[2021-08-30 10:48] LABS: BILIRUBIN,TOTAL 0.5 mg/dL (0.2-1)
[2021-08-30 10:55] LABS: INR 1.02 (0.83-1.09); PROTHROMBIN TIME (PATIENT) 11.7 SEC (9.7-13.0)
[2021-08-30] MEDS ORDERED: KETOROLAC TROMETHAMINE 30 MG/1 ML VIAL IVPUSH ONE (12:03)
[2021-08-30] MEDS ORDERED: KETOROLAC TROMETHAMINE 30 MG/1 ML VIAL ONE (12:11)
[2021-08-30] MEDS ORDERED: DEXAMETHASONE SOD PHOSPHATE 10 MG/1 ML VIAL IVPUSH ONE (13:41)
[2021-08-30] MEDS ORDERED: MAGNESIUM SULF 50% (8.12 MEQ/2 ML-1 GM VIAL) IVPB ONE (13:43)
[2021-08-30] MEDS ORDERED: DEXAMETHASONE SOD PHOSPHATE 10 MG/1 ML VIAL ONE (13:49)
[2021-08-30] MEDS ORDERED: MAGNESIUM 1GM/D5W - 1 GM/100 ML IVPB IVPB ONE (13:49)
[2021-08-30 14:43] VITALS: BP 139/68; PULSE 60
== END 2021-08-30 15:20 | disposition home or self-care (01) ==
LOC: JER 08:52
PROC: 3E033GC Introduction of Other Therapeutic Substance into Peripheral Vein, Percutaneous Approach (ICD-10-PCS; principal; 2021-08-30)
DX: R51.9 Headache, unspecified (principal); R05.9 Cough, unspecified
CPT/HCPCS: 36415; 70450-TC; 71250-TC; 80053; 84484; 85025; 85610; 85730; 93005; 93010; 99285-25; J1100

== ENCOUNTER 2021-11-17 18:06 | Emergency (ER) | payer OTHER, MEDICARE ==
[2021-11-17 18:28] VITALS: TEMP 98.6; BMI 30.7
[2021-11-17] MEDS ORDERED: SODIUM CHLORIDE 1,000 ML IV STA (19:25)
[2021-11-17] MEDS ORDERED: ONDANSETRON 4 MG/2 ML VIAL IVPUSH ONE (19:45)
[2021-11-17] MEDS ORDERED: ONDANSETRON 4 MG/2 ML VIAL ONE (19:46)
[2021-11-17 20:16] VITALS: BP 138/67; PULSE 73; RESP 18
[2021-11-17 20:44] LABS: BASO % 0.4 % (0-2.0); EOS % 0.5 % (0-4.5); HEMATOCRIT 42.4 % (32.4-45.2); HEMOGLOBIN 13.7 GM/dL (10.7-15.3); LYMPH % 8.5 % (8-40); MCH 29.7 pg (25.7-33.7); MCHC 32.3 g/dl (32.0-36.0); MEAN PLT VOLUME 10.4 fl (7.5-11.1); MONO % 4.2 % (3.8-10.2); NEUT % 86.4 % (42.8-82.8); PLATELET COUNT 185 10^3/uL (134-434); RBC 4.61 M/mm3 (3.60-5.2); RDW 13.4 % (11.6-15.6); WHITE BLOOD COUNT 16.9 K/mm3 (4.0-10.0)
[2021-11-17] MEDS ORDERED: METOCLOPRAMIDE HCL INJECTION 10 MG/2 ML VIAL IVPB ONE (20:53)
[2021-11-17] MEDS ORDERED: LACTATED RINGERS SOLUTION 1000 ML INFUS.BAG IV ONE (20:53)
[2021-11-17] MEDS ORDERED: METOCLOPRAMIDE HCL INJECTION 10 MG/2 ML VIAL ONE (20:56)
[2021-11-17 21:14] LABS: ALBUMIN 4.1 g/dl (3.4-5.0); CALCIUM 9.4 mg/dL (8.5-10.1); MAGNESIUM 2.5 mg/dL (1.8-2.4)
[2021-11-17 21:18] LABS: CREATININE 0.7 mg/dL (0.55-1.3)
[2021-11-17 21:19] LABS: BILIRUBIN,TOTAL 0.6 mg/dL (0.2-1)
[2021-11-17 22:04] LABS: URINE APPEARANCE CLEAR; URINE BILIRUBIN NEGATIVE (NEGATIVE); URINE COLOR YELLOW; URINE GLUCOSE (UA) NEGATIVE (NEGATIVE); URINE KETONE 1+ (NEGATIVE); URINE LEUK ESTERASE NEGATIVE (NEGATIVE); URINE NITRITE NEGATIVE (NEGATIVE); URINE PROTEIN NEGATIVE (NEGATIVE); URINE UROBILINOGEN 0.2 mg/dL (0.2-1.0)
== END 2021-11-17 22:27 | disposition home or self-care (01) ==
LOC: JER 18:06
PROC: 3E033GC Introduction of Other Therapeutic Substance into Peripheral Vein, Percutaneous Approach (ICD-10-PCS; principal; 2021-11-17)
PROC: 3E033GC Introduction of Other Therapeutic Substance into Peripheral Vein, Percutaneous Approach (ICD-10-PCS; 2021-11-17)
PROC: 3E0337Z Introduction of Electrolytic and Water Balance Substance into Peripheral Vein, Percutaneous Approach (ICD-10-PCS; 2021-11-17)
DX: R55 Syncope and collapse (principal)
CPT/HCPCS: 36415; 80053; 81003; 82962; 83735; 84484; 85025; 87077; 87086; 93005; 93010; 99284-25

== ENCOUNTER 2022-07-20 10:30 | Observation (INO) | payer OTHER, MEDICARE ==
[2022-07-20 10:38] VITALS: BMI 19.2
[2022-07-20] MEDS ORDERED: ASPIRIN 81 MG CHEWABLE TABLETS PO ONE (11:07)
[2022-07-20] MEDS ORDERED: ASPIRIN 81 MG CHEWABLE TABLETS ONE (11:08)
[2022-07-20 11:43] LABS: BASO % 1.1 % (0-2.0); EOS % 1.6 % (0-4.5); HEMOGLOBIN 13.2 GM/dL (10.7-15.3); LYMPH % 24.1 % (8-40); MCH 30.8 pg (25.7-33.7); MCHC 33.8 g/dl (32.0-36.0); MEAN CELL VOLUME 91.1 fl (80-96); MEAN PLT VOLUME 8.8 fl (7.5-11.1); MONO % 7.4 % (3.8-10.2); NEUT % 65.8 % (42.8-82.8); PLATELET COUNT 139 10^3/uL (134-434); RBC 4.28 M/mm3 (3.60-5.2); RDW 13.1 % (11.6-15.6); WHITE BLOOD COUNT 6.9 K/mm3 (4.0-10.0)
[2022-07-20 11:47] LABS: INR 1.03 (0.83-1.09); PROTHROMBIN TIME (PATIENT) 11.9 SEC (9.7-13.0)
[2022-07-20 11:50] LABS: ACTIVATED PTT 29.2 SECONDS (25.2-36.5)
[2022-07-20 12:01] LABS: ALBUMIN 3.8 g/dl (3.4-5.0); BLOOD UREA NITROGEN 15.1 mg/dL (7-18); CALCIUM 9.1 mg/dL (8.5-10.1); MAGNESIUM 2.2 mg/dL (1.8-2.4)
[2022-07-20 12:04] LABS: CREATININE 0.7 mg/dL (0.55-1.3)
[2022-07-20 12:06] LABS: BILIRUBIN,TOTAL 0.4 mg/dL (0.2-1); TOT PROT 6.6 g/dl (6.4-8.2)
[2022-07-20] MEDS ORDERED: PANTOPRAZOLE SODIUM 40 MG VIAL ONE (14:27)
[2022-07-20] MEDS: PANTOPRAZOLE 40 MG TABLET PO SCH (14:42)
[2022-07-20] MEDS: ATORVASTATIN CA 20 MG TABLET (FP) PO SCH (21:39)
[2022-07-20] MEDS: METOPROLOL TARTRATE 25 MG TABLET (FP) PO SCH (21:40)
[2022-07-20] MEDS: ACETAMINOPHEN 325 MG TABLET (FP) PO PRN (21:40)
[2022-07-21] MEDS ORDERED: METOCLOPRAMIDE HCL INJECTION 10 MG/2 ML VIAL IVPB ONE (00:58)
[2022-07-21] MEDS ORDERED: REGADENOSON 0.4 MG/5 ML PRE-FILLED SYRINGE IVPUSH ONE ×2 (09:53→10:00)
[2022-07-21] MEDS: ACETAMINOPHEN 325 MG TABLET (FP) PO PRN (13:26)
[2022-07-21] MEDS: ASPIRIN COATED 81 MG TABLET.EC PO SCH (13:56)
[2022-07-21] MEDS: METOPROLOL TARTRATE 25 MG TABLET (FP) PO SCH ×3 (13:57→22:20)
[2022-07-21] MEDS: PANTOPRAZOLE 40 MG TABLET PO SCH (13:57)
[2022-07-21] MEDS: LOSARTAN POTASSIUM 50 MG TABLET PO SCH ×2 (13:57→14:03)
[2022-07-21] MEDS: ATORVASTATIN CA 20 MG TABLET (FP) PO SCH (22:20)
[2022-07-22 06:13] VITALS: BP 130/56; PULSE 55; RESP 18; TEMP 96.3
[2022-07-22] MEDS: PANTOPRAZOLE 40 MG TABLET PO SCH (09:56)
[2022-07-22] MEDS: ASPIRIN COATED 81 MG TABLET.EC PO SCH (09:56)
[2022-07-22] MEDS: METOPROLOL TARTRATE 25 MG TABLET (FP) PO SCH (09:56)
[2022-07-22] MEDS: LOSARTAN POTASSIUM 50 MG TABLET PO SCH (09:59)
== END 2022-07-22 11:15 | disposition home or self-care (01) ==
LOC: JER 10:30 → INTOOBSV 10:57 → JERBED 10:57 → UNDOADMOB 10:57 → JERBED 13:07 → J4W 18:53
PROVIDERS: ADMIT Family Medicine; ATTEND Family Medicine
PROC: 3E033GC Introduction of Other Therapeutic Substance into Peripheral Vein, Percutaneous Approach (ICD-10-PCS; principal; 2022-07-20)
DX: I10 Essential (primary) hypertension (principal); E78.5 Hyperlipidemia, unspecified; Z87.891 Personal history of nicotine dependence; R07.9 Chest pain, unspecified; M50.90 Cervical disc disorder, unspecified, unspecified cervical region; R42 Dizziness and giddiness; Z91.041 Radiographic dye allergy status
CPT/HCPCS: 36415; 71045-TC-FY; 72141-TC; 78452-TC; 80053; 80061; 83036; 83735; 84443; 84484; 85025; 85610; 85730; 93005; 93010; 93017; 93306-TC; 96374; 99285-25; A9502; C9803-CS; G0378; J2785; U0003; U0005

== ENCOUNTER 2024-01-25 14:00 | Inpatient (IN) | payer OTHER, MEDICARE ==
[2024-01-25 16:14] LABS: BASO % 0.8 % (0-2.0); EOS % 2.5 % (0-4.5); HEMATOCRIT 40.5 % (32.4-45.2); HEMOGLOBIN 13.6 GM/dL (10.7-15.3); LYMPH % 25.6 % (8-40); MCH 30.5 pg (25.7-33.7); MCHC 33.5 g/dl (32.0-36.0); MEAN PLT VOLUME 7.4 fl (7.5-11.1); MONO % 7.8 % (3.8-10.2); NEUT % 63.3 % (42.8-82.8); PLATELET COUNT 252 10^3/uL (134-434); RBC 4.45 M/mm3 (3.60-5.2); RDW 13.6 % (11.6-15.6); WHITE BLOOD COUNT 8.2 K/mm3 (4.0-10.0)
[2024-01-25] MEDS ORDERED: guaiFENesin/CODEINE 5 ML UNIT-DOSE CUPS PO PRN (16:14)
[2024-01-25 16:19] LABS: EPI CELLS 1 /uL (0-25.1); HYALINE CASTS 0 /uL (0-3.1); URINE APPEARANCE CLEAR; URINE BACTERIA 12 /uL (0-1359); URINE BILIRUBIN NEGATIVE (NEGATIVE); URINE COLOR YELLOW; URINE GLUCOSE (UA) NEGATIVE (NEGATIVE); URINE KETONE NEGATIVE (NEGATIVE); URINE LEUK ESTERASE TRACE (NEGATIVE); URINE NITRITE NEGATIVE (NEGATIVE); URINE PROTEIN NEGATIVE (NEGATIVE); URINE RBC 17 /uL (0-23.9); URINE UROBILINOGEN 0.2 mg/dL (0.2-1.0); URINE WBC 7 /uL (0-25.8)
[2024-01-25] MEDS: CEFEPIME HCL/D5W 2 GM/50 ML BAG IVPB ONE (16:30)
[2024-01-25 16:41] LABS: CALCIUM 10.1 mg/dL (8.5-10.1)
[2024-01-25 16:42] LABS: ALBUMIN 3.8 g/dl (3.4-5.0); BLOOD UREA NITROGEN 16.3 mg/dL (7-18); MAGNESIUM 2.2 mg/dL (1.8-2.4)
[2024-01-25 16:45] LABS: CREATININE 0.8 mg/dL (0.55-1.3)
[2024-01-25] MEDS ORDERED: CEFEPIME 2 GM/100 ML BAG IVPB ONE ×2 (16:45→21:02)
[2024-01-25 16:46] LABS: BILIRUBIN,TOTAL 0.4 mg/dL (0.2-1); TOT PROT 6.7 g/dl (6.4-8.2)
[2024-01-25] MEDS ORDERED: ACETAMINOPHEN 325 MG TABLET (FP) ONE (17:57)
[2024-01-25] MEDS: ACETAMINOPHEN 325 MG TABLET (FP) PO PRN (18:01)
[2024-01-25] MEDS ORDERED: ATORVASTATIN CA 20 MG TABLET (FP) ONE (21:01)
[2024-01-25] MEDS ORDERED: METOPROLOL TARTRATE 25 MG TABLET (FP) ONE (21:01)
[2024-01-25] MEDS: METOPROLOL TARTRATE 25 MG TABLET (FP) PO SCH (21:31)
[2024-01-25] MEDS: CEFEPIME 2 GM in DEXTROSE 5%-WATER 100 ML IVPB SCH (21:31)
[2024-01-25] MEDS: KETOROLAC TROMETHAMINE 15 MG/ML VIAL IVPUSH ONE (21:31)
[2024-01-25] MEDS: ATORVASTATIN CA 20 MG TABLET (FP) PO SCH (21:31)
[2024-01-26] MEDS: PANTOPRAZOLE 40 MG TABLET PO SCH (09:44)
[2024-01-26] MEDS: VALSARTAN 160 MG TABLET PO SCH (09:47)
[2024-01-26] MEDS: ASPIRIN COATED 81 MG TABLET.EC PO SCH (09:48)
[2024-01-26] MEDS ORDERED: ACETAMINOPHEN 325 MG TABLET (FP) ONE (10:07)
[2024-01-26] MEDS ORDERED: CEFTRIAXONE 2 GM/100 ML BAG IVPB ONE (10:08)
[2024-01-26] MEDS ORDERED: CEFEPIME 2 GM/100 ML BAG IVPB ONE (11:03)
[2024-01-26] MEDS: CEFEPIME 2 GM in DEXTROSE 5%-WATER 100 ML IVPB SCH (17:49)
[2024-01-26] MEDS: CEFEPIME 1 GM in DEXTROSE 5%-WATER 100 ML IVPB SCH (18:50)
[2024-01-27 20:56] VITALS: BMI 18.7
[2024-01-27] MEDS: SENNOSIDES/DOCUSATE COMBO (SENNA PLUS) TABLET (UD) PO SCH (21:27)
[2024-01-27] MEDS: SODIUM PHOSPHATE/NA BIPHOS 133 ML ENEMA RC ONE (21:27)
[2024-01-28 03:13] VITALS: BP 129/62; PULSE 60; RESP 20; TEMP 97.9
[2024-01-28] MEDS ORDERED: CEFEPIME HCL 1 GM VIAL (RESTRICTED TO ID) ONE (10:24)
== END 2024-01-28 18:52 | disposition home or self-care (01) | DRG 690 ==
LOC: JER 14:00 → JERBED 15:55 → J6S 01-26 15:37
PROVIDERS: ADMIT Family Medicine; ATTEND Family Medicine
DX: N39.0 Urinary tract infection, site not specified (principal); I10 Essential (primary) hypertension; E78.00 Pure hypercholesterolemia, unspecified; M54.12 Radiculopathy, cervical region; I25.10 Atherosclerotic heart disease of native coronary artery without angina pectoris; B96.5 Pseudomonas (aeruginosa) (mallei) (pseudomallei) as the cause of diseases classified elsewhere; Z86.73 Personal history of transient ischemic attack (TIA), and cerebral infarction without residual deficits
CPT/HCPCS: 36415; 80053; 81003; 83735; 85025; 87040; 87086; 93005; 93010; 97116-GP; 97161-GP; 99285-25

== ENCOUNTER 2024-02-24 13:43 | Emergency (ER) | payer OTHER, MEDICARE ==
[2024-02-24 13:48] VITALS: BMI 18.6
[2024-02-24 15:24] VITALS: RESP 18
[2024-02-24] MEDS ORDERED: ACETAMINOPHEN INJECTION 100 ML ONE (16:02)
[2024-02-24 16:27] LABS: PH,URINE 7.5 (5.0-8.0); URINE APPEARANCE CLEAR; URINE BILIRUBIN NEGATIVE (NEGATIVE); URINE COLOR YELLOW; URINE GLUCOSE (UA) NEGATIVE (NEGATIVE); URINE KETONE NEGATIVE (NEGATIVE); URINE LEUK ESTERASE NEGATIVE (NEGATIVE); URINE NITRITE NEGATIVE (NEGATIVE); URINE PROTEIN NEGATIVE (NEGATIVE); URINE UROBILINOGEN 0.2 mg/dL (0.2-1.0)
[2024-02-24] MEDS: ACETAMINOPHEN 1000 MG/100 ML BAG IVPB ONE (16:27)
[2024-02-24 16:34] LABS: BASO % 0.6 % (0-2.0); EOS % 2.8 % (0-4.5); HEMATOCRIT 40.5 % (32.4-45.2); HEMOGLOBIN 13.3 GM/dL (10.7-15.3); MCH 30.2 pg (25.7-33.7); MCHC 32.9 g/dl (32.0-36.0); MEAN CELL VOLUME 91.6 fl (80-96); MEAN PLT VOLUME 7.7 fl (7.5-11.1); MONO % 6.3 % (3.8-10.2); NEUT % 59.3 % (42.8-82.8); PLATELET COUNT 241 10^3/uL (134-434); RBC 4.42 M/mm3 (3.60-5.2); RDW 13.6 % (11.6-15.6); WHITE BLOOD COUNT 9.5 K/mm3 (4.0-10.0)
[2024-02-24 16:53] LABS: POTASSIUM 3.9 mmol/L (3.5-5.1)
[2024-02-24 16:56] LABS: ALBUMIN 3.7 g/dl (3.4-5.0); BLOOD UREA NITROGEN 10.7 mg/dL (7-18); CALCIUM 9.1 mg/dL (8.5-10.1); MAGNESIUM 2.3 mg/dL (1.8-2.4)
[2024-02-24 16:59] LABS: CREATININE 0.7 mg/dL (0.55-1.3)
[2024-02-24 17:01] LABS: BILIRUBIN,TOTAL 0.3 mg/dL (0.2-1); TOT PROT 6.6 g/dl (6.4-8.2)
[2024-02-24 17:22] VITALS: PULSE 68
[2024-02-24 17:51] LABS: HIV INTERPRETATION NEGATIVE (NEGATIVE)
[2024-02-24 20:28] VITALS: BP 130/45; TEMP 98.9
== END 2024-02-24 20:53 | disposition home or self-care (01) ==
LOC: JER 13:43
PROC: 3E033NZ Introduction of Analgesics, Hypnotics, Sedatives into Peripheral Vein, Percutaneous Approach (ICD-10-PCS; principal; 2024-02-24)
DX: R07.9 Chest pain, unspecified (principal); R14.1 Gas pain; Z20.822 Contact with and (suspected) exposure to COVID-19
CPT/HCPCS: 0241U-QW; 36415; 71046-TC-FY; 71275-TC; 80053; 81003; 83690; 83735; 84484; 85025; 86803; 87086; 87389; 93005; 93010; 99285-25; J0131; Q9967

== ENCOUNTER 2024-02-27 13:14 | Day surgery (SDC) | payer OTHER, MEDICARE ==
[2024-02-27] MEDS: ZOLEDRONIC ACID/MAN/WATER 5 MG/100 ML INFUS..BTL IVPB ONE (13:38)
[2024-02-27 14:29] VITALS: BP 122/78; PULSE 73; RESP 16; TEMP 98.4
== END 2024-02-27 14:29 | disposition home or self-care (01) ==
LOC: FINFUSION 13:14 → FM/S 13:16 → FINFUSION 14:29
PROVIDERS: ATTEND Family Medicine
PROC: 3E033GC Introduction of Other Therapeutic Substance into Peripheral Vein, Percutaneous Approach (ICD-10-PCS; principal; 2024-02-27)
DX: M81.0 Age-related osteoporosis without current pathological fracture (principal)
CPT/HCPCS: 96365; J3489